=== PATIENT | female | born 1980 | race American Indian/Alaskan Native ===

== ENCOUNTER 2018-06-04 02:47 | Emergency (ER) | payer MEDICAID, OTHER ==
[2018-06-04 03:06] VITALS: BP 115/58
--- NOTE | 2018-06-04 03:52 | XRay Report ---
FINAL REPORT PROCEDURE: XR FOOT 2V RT TECHNIQUE: RIGHT foot radiographs, AP, lateral, and oblique views. CPT 83876 HISTORY: pain and swelling of right foot COMPARISON: No prior studies are available for comparison. FINDINGS: Fracture (s) and/or Dislocation(s): There is a impacted fracture at base of 5th metatarsal. The remai nder the osseous structures are intact.. Alignment: Normal . Joint space(s): Normal . Soft tissues: Mild soft tissue swelling the lateral aspect foot. Bone mineralization: Normal . Foreign bodies: None . Calcaneal spurring: None . IMPRESSION: There is an impacted fracture at the base of the 5th metatarsal. There is associated mild soft tissue swelling..
[2018-06-04] MEDS ORDERED: NORCO 5/325 PO ONE (07:51)
--- NOTE | 2018-06-04 07:55 | Emergency Department Report ---
ED Lower Extremity HPI - General Chief Complaint: Extremity Injury, Lower Stated Complaint: RIGHT FOOT INJURY Source: patient Mode of arrival: Ambulatory Limitations: No Limitations - History of Present Illness Initial Comments: This is a 38-year-old [place] female presents with right foot pain and swelling since last night. The patient states she was walking up stairs in her home when she heard a crackling sound in which she arrived to the top of the stairs she felt pain and noticed swelling to right lateral foot. Patient reports incident occurred around 2100 last night. States she is unable to apply weight to the right lower extremity. She reports a history of a DVT and currently taking Coumadin. MD Complaint: foot injury (right) -: Last night Time: 21:00 Injury: Foot: Right Type of Injury: unknown Place: home Severity scale (0 -10): 10 Improves With: nothing Worsens With: weight bearing, movement, palpation Context: walking Associated Symptoms: snap/pop sensation, swelling, unable to bear weight. denies: numbness, tingling - Related Data Previous Rx's Medication Instructions Recorded Last Taken Type Enoxaparin [Lovenox] 100 mg SQ BID #30 day 02/13/14 Unknown Rx Acetaminophen/Codeine [Tylenol 1 tab PO Q6H PRN #12 tab 06/04/18 Unknown Rx /Codeine # 3 tab] Naproxen [Naprosyn] 500 mg PO TID PRN #15 tablet 06/04/18 Unknown Rx Allergies Allergy/AdvReac Type Severity Reaction Status Date / Time No Known Allergies Allergy Unverified 02/13/14 18:02 ED Review of Systems ROS: Stated complaint: RIGHT FOOT INJURY Other details as noted in HPI Constitutional: denies: chills, fever Respiratory: denies: cough, shortness of breath, wheezing Cardiovascular: denies: chest pain, palpitations Gastrointestinal: denies: abdominal pain, nausea, diarrhea Musculoskeletal: arthralgia (right foot pain). denies: back pain, joint swelling Skin: denies: rash, lesions Neurological: denies: headache, weakness, paresthesias Psychiatric: denies: anxiety, depression ED Past Medical Hx - Past Medical History Previous Medical History?: Yes Hx Pulmonary Embolism: No (Has DVT -US performed 02/13/14) Additional medical history: left knee surgery 02/09/2014 - Surgical History Past Surgical History?: Yes Additional Surgical History: clots - Social History Smoking Status: Current Every Day Smoker Substance Use Type: Alcohol, Marijuana - Medications Home Medications: Home Medications Medication Instructions Recorded Confirmed Last Taken Type Enoxaparin [Lovenox] 100 mg SQ BID #30 day 02/13/14 Unknown Rx Acetaminophen/Codeine [Tylenol 1 tab PO Q6H PRN #12 tab 06/04/18 Unknown Rx /Codeine # 3 tab] Naproxen [Naprosyn] 500 mg PO TID PRN #15 tablet 06/04/18 Unknown Rx ED Physical Exam - General Limitations: No Limitations General appearance: alert, in no apparent distress - Respiratory Respiratory exam: Present: normal lung sounds bilaterally. Absent: respiratory distress - Cardiovascular Cardiovascular Exam: Present: regular rate, normal rhythm. Absent: systolic murmur, diastolic murmur, rubs, gallop - GI/Abdominal GI/Abdominal exam: Present: soft, normal bowel sounds - Expanded Lower Extremity Exam Right Hip exam: Present: normal inspection, full ROM Upper Leg exam: Present: normal inspection, full ROM Knee exam: Present: normal inspection, full ROM Lower Leg exam: Present: normal inspection, full ROM Ankle exam: Present: normal inspection, full ROM Foot/Toe exam: Present: tenderness (there is tenderness and swelling from third through fifth proximal metatarsals), swelling, erythema, tenderness at base of 5th metatarsal. Absent: full ROM (Limited range of motion secondary pain), abrasion, laceration, ecchymosis, deformity, dislocation, amputation, puncture wound, foreign body, calcaneal tenderness Neuro vascular tendon exam: Present: no vascular compromise Gait: Positive: unable to bear weight - Neurological Exam Neurological exam: Present: alert, oriented X3 - Psychiatric Psychiatric exam: Present: normal affect, normal mood - Skin Skin exam: Present: warm, dry, intact, normal color. Absent: rash ED Course Vital Signs 06/04/18 03:04 Temperature 98.0 F Pulse Rate 82 Respiratory 20 Rate Blood Pressure 115/58 O2 Sat by Pulse 99 Oximetry ED Lower Extremity MDM - Radiology Data Radiology results: report reviewed PROCEDURE: XR FOOT 2V RT TECHNIQUE: RIGHT foot radiographs, AP, lateral, and oblique views. CPT 43773 HISTORY: pain and swelling of right foot COMPARISON: No prior studies are available for comparison. FINDINGS: Fracture (s) and/or Dislocation(s): There is a impacted fracture at base of 5th metatarsal. The remainder the osseous structures are intact.. Alignment: Normal . Joint space(s): Normal . Soft tissues: Mild soft tissue swelling the lateral aspect foot. Bone mineralization: Normal . Foreign bodies: None . Calcaneal spurring: None . IMPRESSION: There is an impacted fracture at the base of the 5th metatarsal. There is associated mild soft tissue swelling. - Medical Decision Making Patient was examined by me. Vitals are normal and patient is in no acute distress. Given [place] 5/325 mg by mouth while in ER. Obtained a x-ray of the right foot. X-ray dictated by radiologist report reviewed by myself. There is an impacted fracture at the base of the 5th metatarsal. There is associated mild soft tissue swelling. A posterior leg splint applied to the right lower extremity. Patient informed of results. Start Tylenol No. 3 and naproxen for pain. Referral to orthopedic surgeon for continued care. Plan discussed with patient to discharge home and treat outpatient. She agrees with ER plan. Patient discharged home in stable condition. Follow up with PCP in 2-3 days. Critical care attestation.: If time is entered above; I have spent that time in minutes in the direct care of this critically ill patient, excluding procedure time. ED Disposition Clinical Impression: Right foot pain Fracture of metatarsal bone of right foot Qualifiers: Encounter type: initial encounter Metatarsal bone: fifth Fracture type: closed Fracture alignment: nondisplaced Qualified Code(s): S92.354A - Nondisplaced fracture of fifth metatarsal bone, right foot, initial encounter for closed fracture Disposition: TO HOME OR SELFCARE Is pt being admited?: No Does the pt Need Aspirin: No Condition: Stable Instructions: Foot Fracture in Adults (ED) Additional Instructions: Rest Remain non-weight bearing to right foot. Take pain medication every 6 hours as needed for pain. Follow-up with her orthopedic surgeon in the next 24-72 hours. Follow up with Primary Care Provider in 2-3 days. Prescriptions: Acetaminophen/Codeine [Tylenol /Codeine # 3 tab] 1 tab PO Q6H PRN #12 tab PRN Reason: Pain , Severe (7-10) Naproxen [Naprosyn] 500 mg PO TID PRN #15 tablet PRN Reason: Pain , Severe (7-10) Referrals: REESE SANCHEZ MD [Primary Care Provider] - 3-5 Days CRISTIAN GRUBER MD [Staff Physician] - 3-5 Days [facility] [Provider Group] - 3-5 Days Forms: Work/School Release Form(ED) Time of Disposition: 08:05
== END 2018-06-04 10:45 | disposition home or self-care (01) ==
LOC: ED 02:47
DX: S92.354A Nondisplaced fracture of fifth metatarsal bone, right foot, initial encounter for closed fracture (principal); F17.200 Nicotine dependence, unspecified, uncomplicated; W10.8XXA Fall (on) (from) other stairs and steps, initial encounter; Y93.89 Activity, other specified; Y92.098 Other place in other non-institutional residence as the place of occurrence of the external cause; Y99.8 Other external cause status

== ENCOUNTER 2018-12-10 03:41 | Emergency (ER) | payer SELFPAY ==
[2018-12-10 03:53] VITALS: BP 127/69
[2018-12-10] MEDS ORDERED: IBUPROFEN PO ONE (04:43)
[2018-12-10] MEDS ORDERED: BENADRYL PO ONE (04:43)
--- NOTE | 2018-12-10 04:46 | Emergency Department Report ---
[facility] Chief Complaint: Eye Problems Stated Complaint: VISION LOSS Time Seen by Provider: 12/10/18 04:41 Side: Bilateral Severity: moderate Symptoms: Yes Eye Itching, Yes Eye Redness, Yes Mucous Drainage, Yes Purulent Dr hernandez, Yes Preceding URI, Yes H/O Allergic Rhinitis, No Blurred Vision, No Contact Lens Use, No Trauma, No Fever, No Headache ED Review of Systems ROS: Stated complaint: VISION LOSS Other details as noted in HPI Constitutional: denies: chills, fever Eyes: eye discharge, vision change (blurred vision). denies: eye pain ENT: denies: ear pain, throat pain Respiratory: denies: cough, shortness of breath, wheezing Cardiovascular: denies: chest pain, palpitations Endocrine: no symptoms reported Gastrointestinal: denies: abdominal pain, nausea, diarrhea Genitourinary: denies: urgency, dysuria, discharge Musculoskeletal: denies: back pain, joint swelling, arthralgia Skin: denies: rash, lesions Neurological: denies: headache, weakness, paresthesias Psychiatric: denies: anxiety, depression Hematological/Lymphatic: denies: easy bleeding, easy bruising ED Past Medical Hx - Past Medical History Previous Medical History?: Yes Hx Pulmonary Embolism: No (Has DVT -US performed 02/13/14) Additional medical history: left knee surgery 02/09/2014 - Surgical History Past Surgical History?: Yes Additional Surgical History: clots - Social History Smoking Status: Current Every Day Smoker Substance Use Type: Alcohol, Marijuana - Medications Home Medications: Home Medications Medication Instructions Recorded Confirmed Last Taken Type Enoxaparin [Lovenox] 100 mg SQ BID #30 day 02/13/14 Unknown Rx Acetaminophen/Codeine [Tylenol 1 tab PO Q6H PRN #12 tab 06/04/18 Unknown Rx /Codeine # 3 tab] Naproxen [Naprosyn] 500 mg PO TID PRN #15 tablet 06/04/18 Unknown Rx Ciprofloxacin HCl 2 drops OU Q3H 10 Days #10 ml 12/10/18 Unknown Rx Ibuprofen [Motrin 800 MG tab] 800 mg PO Q8HR PRN #30 tablet 12/10/18 Unknown Rx Ketotifen Fumarate [Zaditor] 2 drops OU TID #5 ml 12/10/18 Unknown Rx [facility] Exam - Exam General: Vital signs noted. No distress. Alert and acting appropriately. Eye Exam: Both Injection, Both EOMI, Both Mucous Discharge, Both Purulent Discharge, Both Photophobia, Neither Chemosis, Neither Abnormal Pupil, Neither Eye Foreign Body, Neither Lid Foreign Body, Neither Corneal Edema HEENT: No Nasal Congestion, No Pharyngeal Erythema Remainder of HEENT: Normal Lungs: Yes Clear Lung Sounds, Yes Good Air Exchange, No Wheezes, No Stridor, No Cough, No Nasal Flaring, No Retractions, No Use of Accessory Muscles Exam: pt is perrla eomi bilat conjunctival erythema yellow purulent discharge no blurred vision after irrigation with sterile saline, visual aqcuit 20/40 bilat mild photophobia ED Course Vital Signs 12/10/18 03:49 Temperature 98.5 F Pulse Rate 84 Respiratory 16 Rate Blood Pressure 127/69 O2 Sat by Pulse 98 Oximetry ED Medical Decision Making - Radiology Data Radiology results: report reviewed, image reviewed this bacterial conjunctivitis plan, cipro opthal, zaditor, ibuprofen, follow up with ophthalmology tomorrow, pt verbalized agreement and understanding of same. Critical care attestation.: If time is entered above; I have spent that time in minutes in the direct care of this critically ill patient, excluding procedure time. ED Disposition Clinical Impression: Conjunctivitis Qualifiers: Conjunctivitis type: acute Acute conjunctivitis type: bacterial Laterality: bilateral Qualified Code(s): H10.33 - Unspecified acute conjunctivitis, bilateral Disposition: - TO HOME OR SELFCARE Is pt being admited?: No Does the pt Need Aspirin: No Condition: Stable Instructions: Conjunctivitis (ED) Prescriptions: Ciprofloxacin HCl 2 drops OU Q3H 10 Days #10 ml Ibuprofen [Motrin 800 MG tab] 800 mg PO Q8HR PRN #30 tablet PRN Reason: pain Ketotifen Fumarate [Zaditor] 2 drops OU TID #5 ml Referrals: MEDHAT PRINGLE MD [Staff Physician] - [facility] Forms: Work/School Release Form(ED) Time of Disposition: 04:53
== END 2018-12-10 05:00 | disposition home or self-care (01) ==
LOC: ED 03:41
DX: H10.9 Unspecified conjunctivitis (principal); F17.200 Nicotine dependence, unspecified, uncomplicated; F12.10 Cannabis abuse, uncomplicated; Z79.899 Other long term (current) drug therapy; Z86.711 Personal history of pulmonary embolism; Z98.890 Other specified postprocedural states